=== PATIENT | female | born 1950 | race Caucasian/White ===

== ENCOUNTER 2016-05-01 11:04 | Emergency (ER) | payer OTHER, BC ==
[~2016-05-01] VITALS: Ht 152.4 cm; Wt 65.7 kg
[~2016-05-01 11:04] MED LIST: ADULT LOW DOSE81 MG PO; ADVIL ALLERGY1 EACH PO; AMRIX15 MG PO; AMRIX30 MG PO; ASPIR 8181 M1 PO; B-12 DOTS500 MCG PO; BLACK COHOSH540 MG PO; CENTRUM SILVER1 EAC3 PO; CITALOPRAM HBR20 MG PO; CYCLOBENZAPRINE30 MG PO; Claritin,Alavart PO; ERYTHROMYC1 APPLICAT BOTH EYES; FISH OIL 1,0001 EAC7 PO; FISH OIL 1,0001 EACH PO; FLEXERIL10 MG PO; FOLIC ACID0.4 MG PO; Feosol PO; Folic Acid PO; GEMFIBROZIL600 MG PO; IBUPROFEN200 M1 PO; IRON325 MG PO; LISINOPRIL5 MG PO; LOPRESSOR HC1 TABLE2 PO; LOPRESSOR HCT1 EAC2 PO; LORATADINE10 M2 PO; LORTAB 5-500 T1 EAC1 PO; MAGNESIUM250 MG PO; MICRO-K10 ME2 PO; Micro-K,K-Tab,K-Dur, PO; NEURONTIN300 MG PO; NIFEDICAL XL30 MG PO; NIFEDICAL XL60 MG PO; NORCO 5/3251 TABLET PO; OXYCODONE HCL5 MG PO; Osteo-Biflex,Flex-A- PO; RANITIDINE HCL150 MG PO; TYLENOL EXTRA500 MG PO; TYLENOL/CODE1 TABLE1 PO; VITAMIN D31000 UNI1 PO; Vicodin,Lortab 5/500 PO; Voltaren PO; XARELTO10 MG PO; ZYRTEC10 MG PO; Zantac,Taladine PO; [UNRECOGNIZED DRUG - OTHER] PO; celeXA PO
[2016-05-01] MEDS ORDERED: ASPIRIN325 MG PO (11:51)
[2016-05-01] MEDS ORDERED: FISH OIL300 MG PO (11:53)
[2016-05-01] MEDS ORDERED: MELOXICAM15 MG PO (11:54)
[2016-05-01] MEDS ORDERED: POTASSIUM-9999 MG PO (11:56)
[2016-05-01] MEDS ORDERED: NORCO 5/3251 TABLET PO (11:56)
[2016-05-01] MEDS ORDERED: PRAVASTATIN SOD10 MG PO (11:58)
[2016-05-01] MEDS ORDERED: RANITIDINE HCL150 M1 PO (11:58)
[2016-05-01] MEDS ORDERED: ULTRACET1 TABLET PO (14:31)
[2016-05-01] MEDS ORDERED: MOTRIN600 MG PO (14:31)
[2016-05-01] MEDS ORDERED: KEFLEX500 MG PO (14:32)
[2016-05-01 15:06] VITALS: BP 118/64
== END 2016-05-01 15:00 | disposition home or self-care (01) ==
LOC: EME 11:04 → RME 11:04
PROC: 0HQDXZZ Repair Right Lower Arm Skin, External Approach (ICD-10-PCS; principal; 2016-05-01)
PROC: 3E0234Z Introduction of Serum, Toxoid and Vaccine into Muscle, Percutaneous Approach (ICD-10-PCS; 2016-05-01)
DX: S09.90XA Unspecified injury of head, initial encounter (principal); S42.401B Unspecified fracture of lower end of right humerus, initial encounter for open fracture; S51.011A Laceration without foreign body of right elbow, initial encounter; W00.0XXA Fall on same level due to ice and snow, initial encounter; Z23 Encounter for immunization; G89.29 Other chronic pain; I10 Essential (primary) hypertension; E78.5 Hyperlipidemia, unspecified; Z79.82 Long term (current) use of aspirin
CPT/HCPCS: 73080; 99281; 99284; J0690